=== PATIENT | female | born 1965 | race Two or more races ===

== ENCOUNTER 2017-12-21 13:48 | Inpatient (IN) | payer BC ==
[2017-12-21] MEDS ORDERED: ONDANSETRON HCL IV 4 MG/2 ML VIAL IVP ONE ×2 (14:23→17:21)
[2017-12-21] MEDS ORDERED: ACETAMINOPHEN 1,000 MG/100 ML BTL IVPB ONE (14:23)
[2017-12-21] MEDS ORDERED: 0.9 % SODIUM CHLORIDE 1,000 ML BAG IV ONE (14:23)
--- NOTE | 2017-12-21 14:24 | Emergency Department Record ---
History of Present Illness - General Chief complaint: Vomiting Stated complaint: VOMITING,HEADACHE,ABDOMINAL PAIN,BACK PAIN Time Seen by Provider: 12/21/17 14:16 Source: Patient Mode of Arrival: Ambulatory Limitations: No limitations - History of Present Illness Initial comments: 52 yo female presents since Thursday not feeling well. She states she ate a wrap sandwich and soon after developed nausea and vomiting on Thursday. Since then she has continued to be nauseated with persistent vomiting. She has gradually developed headaches as well. The headache has now become constant since Thursday. Her TMax was about 101. No rash. She has had some abdominal cramps but no significant or persistent abdominal pain. No diarrhea. The neck is a little painful but no limitation with movement. No light sensitivity. No cough. No dysuria. No sore throat. Her PCP is Dr Fernander. ROCHA complaint: Abdominal pain, Nausea, Vomiting, Other (Headache) Onset/Timin -: Days(s) (4 days. Onset Thursday.) Description of Vomiting: Watery Description of Diarrhea: Other (None) Associated Abdominal Pain: Yes Location: LLQ, RLQ Severity: Severe Severity scale (1-10): 10 Quality: Cramping Consistency: Intermittent Improves with: None Worsens with: None Associated Symptoms: Fever/chills, Headaches, Nausea/vomiting, Other - Related Data Allergies Allergy/AdvReac Type Severity Reaction Status Date / Time bee venom protein (honey bee) Allergy Severe ANAPHYLAXIS Verified 12/21/17 14:05 penicillin V Allergy Intermediate RASH Verified 12/21/17 14:05 Quell AdvReac Severe Makes skin Uncoded 11/03/17 14:02 fall off Travel Screening - Travel/Exposure Within Last 30 Days Have you traveled within the last 30 days?: No Review of Systems Constitutional: Reports: Chills, Fever, Malaise Eyes: Denies: Eye discharge, Eye pain, Photophobia, Vision change ENT: Denies: Congestion, Dental pain, Ear pain, Epistaxis, Throat pain Respiratory: Denies: Cough, Dyspnea, Hemoptysis, Stridor, Wheezes Cardiovascular: Denies: Chest pain, Palpitations, Syncope Endocrine: Reports: Fatigue Gastrointestinal: Reports: Nausea, Vomiting. Denies: Abdominal pain ( occasional cramps), Constipation, Diarrhea, Hematemesis, Hematochezia, Melena Genitourinary: Denies: Dysuria, Frequency, Urgency Musculoskeletal: Reports: Neck pain. Denies: Arthralgia, Back pain, Joint swelling, Myalgia Skin: Denies: Bruising, Change in color, Rash Neurological: Reports: Headache. Denies: Confusion, Tremors, Vertigo, Weakness Psychiatric: Denies: Anxiety Hematological/Lymphatic: Denies: Blood Clots, Easy bleeding, Easy bruising, Swollen glands Past Medical History - SOCIAL HISTORY Smoking Status: Current every day smoker Alcohol Use: None Drug Use: None - RESPIRATORY Hx Respiratory Disorders: No - CARDIOVASCULAR Hx Cardio Disorders: Yes Hx Hypertension: Yes Comment:: high cholesterol - NEURO Hx Neuro Disorders: No - GI Hx GI Disorders: No - Hx Genitourinary Disorders: No - ENDOCRINE Hx Endocrine Disorders: No - MUSCULOSKELETAL Hx Musculoskeletal Disorders: No - PSYCH Hx Psych Problems: No - HEMATOLOGY/ONCOLOGY Hx Hematology/Oncology Disorders: No Family Medical History Any Significant Family History?: No Physical Exam - General General Appearance: Alert, Oriented x3, Cooperative, No acute distress, Other ( No acute distress. Appears non toxic in appearance) Limitations: No limitations - Head Head exam: Atraumatic, Normocephalic, Normal inspection - Eye Eye exam: Normal appearance, PERRL, EOMI. negative: Conjunctival injection, Scleral icterus - ENT ENT exam: Normal exam, Mucous membranes moist, Normal orophraynx, TM's normal bilaterally Ear exam: Normal external inspection Nasal Exam: Normal inspection Mouth exam: Normal external inspection Teeth exam: Normal inspection Throat exam: Normal inspection. negative: Tonsillar erythema, Tonsillar exudate - Neck Neck exam: Normal inspection, Full ROM. negative: Lymphadenopathy, Meningismus , Tenderness - Respiratory Respiratory exam: Normal lung sounds bilaterally. negative: Respiratory distress - Cardiovascular Cardiovascular Exam: Regular rate, Normal rhythm, Normal heart sounds - GI/Abdominal GI/Abdominal exam: Soft, Other (Abdomen is very soft. No tenderness on palpation). negative: Distended, Guarding, Rebound, Rigid, Tenderness - Rectal Rectal exam: Deferred - exam: Deferred - Extremities Extremities exam: Normal inspection. negative: Pedal edema, Tenderness - Back Back exam: Denies: CVA tenderness (R), CVA tenderness (L), Muscle spasm, Paraspinal tenderness, Vertebral tenderness - Neurological Neurological exam: Alert, Normal gait, Oriented X3. negative: Abnormal gait, Altered - Psychiatric Psychiatric exam: Normal affect, Normal mood. negative: Agitated, Anxious - Skin Skin exam: Dry, Intact, Normal color, Warm Course Vital Signs 12/21/17 14:02 Temperature 100.2 F H Pulse Rate 112 H Respiratory 20 Rate Blood Pressure 172/105 Pulse Ox 96 - Reevaluation(s) Reevaluation #1: 12/21/17 14:58 The CBC was reviewed The WBC is elevated at [address] with LP given the headache with elevated WBC count, persistent severe headache with some neck ache We discussed the risks and benefits of LP Consent ordered. 12/21/17 15:51 CMP reviewed. No acute changes The HCT was negative The patient reports she is feeling much better at this time. Procedure: Lumbar Puncture L4-5 Left Lateral Decubitus Betadine Prep Lidocaine with Epi 4ml local 22 gauge spinal needle Single attempt Clear fluid visibly 4 cc obtained Tolerated this very well 12/21/17 17:00 Glucose and protein on the CSF are normal 12/21/17 17:14 The CSF was reported as clear, 0 RBC's and 4 WBC's. 12/21/17 17:21 On recheck the headache is greatly improved and she has no abdominal pain. The nausea is returning. She will be given Zofran and PO challenge. The abdomen is very soft and not tender on examination at this time. 12/21/17 17:29 12/21/17 18:20 The patient has not vomited but the nausea and headache are returning. I recommend admission for supportive care and recheck labs. 12/21/17 18:34 I discussed the admission with Marialuisa Durant REPAIR MANAGER. The patient continues to maintain no abdominal pain, the symptoms are persistent nausea and headache. LP does not indicate any signs of bleeding or infection. The UA has not been obtained from the patient at the time of admission and can be obtained on the medical floor when available from the patient. Recheck CBC in the AM. No abdominal pain or tenderness during ED time so CT not indicated at this time. 12/22/17 07:48 Medical Decision Making - Lab Data Result diagrams: 12/22/17 06:09 12/21/17 14:27 Disposition Disposition: Admit Clinical Impression: Vomiting Qualifiers: Vomiting type: unspecified Vomiting Intractability: non-intractable Nausea presence: with nausea Qualified Code(s): R11.2 - Nausea with vomiting, unspecified Headache Qualifiers: Headache type: unspecified Headache chronicity pattern: unspecified pattern Intractability: not intractable Qualified Code(s): R51 - Headache Disposition: Still a Patient at [facility] Decision to Admit: Admit from ER Decision to Admit Date: 12/21/17 Decision to Admit Time: 18:00 Condition: (2) Stable Time of Disposition: 18:00 Quality - Quality Measures Quality Measures: N/A - Blood Pressure Screening Does Patient Have Any of the Following: Active Dx of HTN Blood Pressure Classification: Hypertensive Reading Systolic Measurement: 172 Diastolic Measurement: 105 Screening for High Blood Pressure: Patient Exclusion, Hx of HTN [G9744]
[2017-12-21 14:31] LABS: HEMATOCRIT 49.3 % (35.0-47.0); HEMOGLOBIN 16.8 gm/dl (11.6-16.0); MEAN CELL VOLUME 81.8 fl (81-97); MEAN CORPUSCULAR HGB CONC 34.1 g/dl (32-36); MEAN PLATELET VOLUME 10.5 fl (7.4-10.4); PLATELET COUNT 387 K/uL (130-400); RED BLOOD COUNT 6.03 M/uL (3.80-5.40); RED CELL DISTRIBUTION WIDTH 14.9 % (11.5-14.5)
[2017-12-21 14:35] LABS: MEAN CORPUSCULAR HEMOGLOBIN 27.8 pg (27-33)
[2017-12-21 14:36] LABS: WHITE BLOOD COUNT W/O DIFF 26.9 K/uL (4.2-12.2)
[2017-12-21 14:45] LABS: BLOOD UREA NITROGEN 17 mg/dL (6-20); CREATININE 0.8 mg/dL (0.5-0.9); EST GLOMERULAR FILTRATION RATE > 60 mL/min; TOTAL PROTEIN 7.8 g/dL (6.6-8.7)
[2017-12-21 14:47] LABS: GLUCOSE,RANDOM 110 mg/dL (74-109)
[2017-12-21 14:48] LABS: INR 1.1; PARTIAL THROMBOPLASTIN TIME 25.3 SECONDS (24.5-39.1); PROTHROMBIN TIME (PATIENT) 11.4 SECONDS (9.5-12.1)
[2017-12-21 14:50] LABS: ALB/GLOB RATIO 1.5 (1.1-1.8); ALBUMIN 4.7 g/dL (4.0-5.0); ALKALINE PHOSPHATASE 99 U/L (35-104); ALT/SGPT 27 U/L (<33); AST/SGOT 17 U/L (10.0-35.0); LIPASE 25 U/L (13-60)
[2017-12-21] MEDS ORDERED: FENTANYL PF 100MCG/2ML VIAL IVP ONE (14:57)
[2017-12-21 16:33] LABS: TOTAL PROTEIN,CSF 20.5 mg/dL (15.0-45.0)
[2017-12-21 17:10] LABS: CSF APPEARANCE CLEAR; CSF COLOR COLORLESS; CSF RBC 0 /mm3; CSF WBC 4 /uL
[2017-12-21 17:28] LABS: SPECIMEN SOURCE CSF
[2017-12-21 17:29] LABS: GRAM STAIN NO ORGANISMS SEEN
[2017-12-21] MEDS ORDERED: FENTANYL PF 100MCG/2ML VIAL IVP PRN (19:38)
[2017-12-21] MEDS: ACETAMINOPHEN 500 MG TABLET PO PRN (19:58)
[2017-12-21] MEDS: 0.9 % SODIUM CHLORIDE 1000ML 1,000 ML IV PRN (21:10)
[2017-12-21] MEDS: SIMVASTATIN 10MG TABLET PO SCH (21:44)
[2017-12-21 22:26] LABS: URINE APPEARANCE CLEAR; URINE BILIRUBIN NEGATIVE (NEGATIVE); URINE BLOOD SMALL (NEGATIVE); URINE COLOR YELLOW; URINE GLUCOSE (UA) NEGATIVE (NEGATIVE); URINE KETONE NEGATIVE (NEGATIVE); URINE LEUKOCYTE ESTERASE TRACE (NEGATIVE); URINE NITRITE NEGATIVE (NEGATIVE); URINE UROBILINOGEN 0.2 E.U./dL (0.20 - 1.00)
[2017-12-21 22:39] LABS: URINE BACTERIA 3+
[2017-12-22] MEDS: ACETAMINOPHEN 500 MG TABLET PO PRN ×2 (02:38→07:47)
[2017-12-22] MEDS: 0.9 % SODIUM CHLORIDE 1000ML 1,000 ML IV PRN ×2 (05:08→14:16)
[2017-12-22 06:33] LABS: HEMATOCRIT 42.9 % (35.0-47.0); HEMOGLOBIN 14.6 gm/dl (11.6-16.0); MEAN CELL VOLUME 82.8 fl (81-97); MEAN CORPUSCULAR HEMOGLOBIN 28.2 pg (27-33); MEAN PLATELET VOLUME 10.3 fl (7.4-10.4); PLATELET COUNT 296 K/uL (130-400); RED BLOOD COUNT 5.18 M/uL (3.80-5.40); RED CELL DISTRIBUTION WIDTH 14.4 % (11.5-14.5)
[2017-12-22 06:42] LABS: WHITE BLOOD COUNT W/O DIFF 22.1 K/uL (4.2-12.2)
[2017-12-22 07:00] LABS: ANISOCYTOSIS 1+; PLATELET ESTIMATE NORMAL (NORMAL)
--- NOTE | 2017-12-22 07:25 | CT SCAN REPORT ---
EXAM: EMERGENCY HEAD CT WITHOUT CONTRAST HISTORY: HEADACHE FOR FOUR DAYS, FEVER. TECHNIQUE: Axial CT scan of the head was performed without IV contrast. Comparison: None. FINDINGS: No definite acute intracranial hemorrhage identified. No focal mass effect or midline shift apparent. No definite acute infarct or intracranial mass lesion is seen. There is probably a small cyst or polyp posteriorly in the left sphenoid sinus. IMPRESSION: EMERGENCY NONCONTRAST HEAD CT APPEARS ESSENTIALLY NEGATIVE WITH NO DEFINITE ACUTE INTRACRANIAL HEMORRHAGE OR FOCAL MASS EFFECT IDENTIFIED. JOB NUMBER: [id number] [facility]
[2017-12-22] MEDS: LOSARTAN POTASSIUM 25 MG TABLET PO SCH ×3 (07:46→11:17)
[2017-12-22] MEDS: CEFTRIAXONE 1GM/50ML BAG 1 GM/50 ML BAG IVPB SCH ×2 (08:41→21:00)
[2017-12-22] MEDS: ENOXAPARIN 40 MG/0.4 ML SYR SQ SCH (08:59)
[2017-12-22] MEDS: ONDANSETRON HCL IV 4 MG/2 ML VIAL IVP PRN ×2 (10:52→18:02)
[2017-12-22] MEDS ORDERED: ACETAMINOPHEN 500 MG TABLET PO PRN (12:20)
[2017-12-22] MEDS: ACETAMINOPHEN 325 MG TAB PO PRN ×2 (12:32→18:04)
[2017-12-22] MEDS ORDERED: IBUPROFEN 600 MG TABLET PO PRN (12:43)
[2017-12-22] MEDS: SIMVASTATIN 10MG TABLET PO SCH (21:40)
[2017-12-22] MEDS ORDERED: LEVOFLOXACIN/D5W 750 MG/150 ML BAG IVPB SCH (22:00)
[2017-12-23] MEDS: ONDANSETRON HCL IV 4 MG/2 ML VIAL IVP PRN (06:22)
[2017-12-23] MEDS: 0.9 % SODIUM CHLORIDE 1000ML 1,000 ML IV PRN ×2 (08:34→16:42)
[2017-12-23] MEDS: CEFTRIAXONE 1GM/50ML BAG 1 GM/50 ML BAG IVPB SCH ×3 (09:47→21:45)
[2017-12-23] MEDS: ENOXAPARIN 40 MG/0.4 ML SYR SQ SCH (09:48)
[2017-12-23] MEDS: LOSARTAN POTASSIUM 25 MG TABLET PO SCH (09:48)
--- NOTE | 2017-12-23 12:40 | History and Physical Report ---
CHIEF COMPLAINT: Chills, fever, vomiting. This started about 3-4 days prior to admission. HISTORY OF PRESENT ILLNESS: This 52-year-old female states she was not feeling well for 4 days. She ate a sandwich at the [employer] and thought it might have been that. She started vomiting. Her temperature was 101. No rashes. She had some abdominal cramping but no persistent abdominal pain. No diarrhea. Her neck was painful. She had a headache. No light sensitivity. No cough. No dysuria. No sore throat. Her primary is Dr. Ridley. She was seen in the emergency department by Dr. Castillo who did a spinal tap which was negative for infection. Cultures are being done. Head CT was negative. Her laboratory showed a white count of 26,900, hemoglobin 16.8, BUN 17, creatinine 0.8. Urine showing 10-15 WBCs, bacteria 3+. Her spinal fluid was clear, colorless, WBCs 4, glucose 67, total protein 20, no organisms seen. PAST MEDICAL HISTORY: Hypertension, hypercholesterolemia. PAST SURGICAL HISTORY: Tonsillectomy and ear surgery. MEDICATIONS: 1. Pravastatin 10 mg at h.s. 2. Losartan 25 mg a day. 3. Claritin-D 1 daily. 4. Ventolin 2 puffs q.4 h. p.r.n. ALLERGIES: BEE VENOM, PEN VK, KWELL. FAMILY/PSYCHOSOCIAL HISTORY: She smokes cigarettes, about a pack a day. No alcohol or drug use. No significant family history. REVIEW OF SYSTEMS: HEENT: She has had fever, chills, nausea, vomiting. Cardiovascular: No chest pain, palpitations. Respiratory: No cough, cold, or congestion. Gastrointestinal: See Chief Complaint. Vomiting but no diarrhea. Some abdominal discomfort. Genitourinary: No dysuria or hematuria but her urine was positive for a UTI. Musculoskeletal: She has body aches. Neurological: She had a headache and neck pain. No signs or CVA. CURBSTONE SETTER: No vaginal bleeding or abnormal lumps in her breasts. Endocrine: No diabetes or thyroid disease. Integument: No rash, ulcers, change in moles, or yellow skin. PHYSICAL EXAMINATION: VITALS: Height 5 feet 7 inches, weight 240 pounds. Temperature 100.2, pulse 112, blood pressure 132/105, respiratory rate 20. HEENT: Pupils are equal, round, and reactive to light and accommodation. Extraocular muscles are intact. Throat is clear. Nose is clear. Tympanic membranes are marin. NECK: Supple. No jugular venous distention. No hepatojugular reflux. No carotid bruits. CARDIOVASCULAR: Regular rate and rhythm without murmurs, clicks, rubs, or gallops. RESPIRATORY: Clear to auscultation. Breath sounds equal bilaterally. ABDOMEN: Soft, nontender. No hepatosplenomegaly, no tenderness, no guarding, no rigidity. EXTREMITIES: No pitting edema. No cyanosis, no clubbing. Full range of motion. Peripheral pulses are good. BREASTS: Exam deferred. GYNECOLOGICAL: Exam deferred. RECTAL: Exam deferred. NEUROLOGIC: Cranial nerves II-XII intact. No gross defects. Sensation normal, strength normal. Deep tendon reflexes equal bilaterally with Babinski negative. MENTAL STATUS: Alert and oriented x3. IMPRESSION: 1. Fever. 2. Vomiting. 3. Urinary tract infection. 4. History of hypertension. PLAN: IV Rocephin 1 g q.12 h. Lovenox 40 mg subcu. IV fluids 125 mL/hour. INPATIENT CERTIFICATION: Based on my medical assessment, after consideration of patient's risk factors, age, comorbidities, and patient's presenting symptoms and acuity, I expect that this patient will remain in the hospital greater than or equal to 2 midnights and that the services needed warrant inpatient care because of fever, dehydration, vomiting. Estimated length of stay is 3 days. The patient may reasonably be expected to be discharged or transferred to a hospital within 96 hours after admission to [facility]. I certify that my determination is in accordance with my understanding of Medicare requirements for reasonable and necessary inpatient services. KASIA
[2017-12-23] MEDS: ACETAMINOPHEN 325 MG TAB PO PRN (13:21)
[2017-12-23] MEDS: CLONIDINE HCL 0.1 MG TABLET PO SCH ×2 (14:07→21:45)
[2017-12-23] MEDS ORDERED: WARFARIN 2.5 MG TAB PO SCH (16:00)
[2017-12-23] MEDS: SIMVASTATIN 10MG TABLET PO SCH (21:43)
[2017-12-24] MEDS: CLONIDINE HCL 0.1 MG TABLET PO SCH (06:16)
[2017-12-24 06:47] LABS: BASO % 0.3 % (0-6); EOS % 2.5 % (0-6); GRAN % 64.1 % (47-80); HEMATOCRIT 39.9 % (35.0-47.0); HEMOGLOBIN 13.1 gm/dl (11.6-16.0); LYMPH % 19.1 % (16-45); MEAN CELL VOLUME 83.6 fl (81-97); MEAN CORPUSCULAR HEMOGLOBIN 27.5 pg (27-33); MEAN CORPUSCULAR HGB CONC 32.8 g/dl (32-36); MEAN PLATELET VOLUME 10.6 fl (7.4-10.4); PLATELET COUNT 269 K/uL (130-400); RED BLOOD COUNT 4.77 M/uL (3.80-5.40); RED CELL DISTRIBUTION WIDTH 14.6 % (11.5-14.5); WHITE BLOOD COUNT W/O DIFF 9.9 K/uL (4.2-12.2)
[2017-12-24] MEDS: CEFTRIAXONE 1GM/50ML BAG 1 GM/50 ML BAG IVPB SCH (09:17)
[2017-12-24] MEDS: ENOXAPARIN 40 MG/0.4 ML SYR SQ SCH (09:18)
[2017-12-24] MEDS: LOSARTAN POTASSIUM 25 MG TABLET PO SCH (09:18)
--- NOTE | 2017-12-24 13:01 | Discharge Note ---
VTE H&P Assessment - Risk for VTE Risk for VTE: Yes Risk Level: Moderate Risk Assessment Date: 12/22/17 Risk Assessment Time: 16:00 VTE Orders Placed or Will Be Placed: Yes Discharge Medications - Discharge Medications Prescriptions: Cephalexin [Keflex] 500 mg PO QID #40 cap Clonidine HCl [Catapres] 0.1 mg PO Q8H #90 tablet Home Medications: Ambulatory Orders Albuterol Sulfate [Ventolin Hfa] 1 - 2 puff IH Q4-6HR #1 inhaler 12/16/16 [Last Taken Unknown] Acetaminophen [Tylenol 325Mg] 650 mg PO Q4H PRN tablet 12/24/17 [Last Taken Unknown] Cephalexin [Keflex] 500 mg PO QID #40 cap 12/24/17 [Last Taken Unknown] Clonidine HCl [Catapres] 0.1 mg PO Q8H #90 tablet 12/24/17 [Last Taken Unknown] Discharge Note - Date Date of Discharge Note: 12/24/17 Condition: (2) Stable Additional Instructions: Follow up with STEVEN Wetzel at [facility] on 01/04 at 5:40 as scheduled it any problems follow up with [facility] clinic sooner if any problems stay off cigs Prescriptions: Cephalexin [Keflex] 500 mg PO QID #40 cap Clonidine HCl [Catapres] 0.1 mg PO Q8H #90 tablet Referrals: JENAE GALVAN [Primary Care Provider] - Forms: Patient Portal Access Activity at Discharge: Increase Activity as Tolerated Diet at Discharge: Regular Diet
--- NOTE | 2017-12-24 13:13 | Discharge Note ---
VTE H&P Assessment - Risk for VTE Risk for VTE: Yes Risk Level: Moderate Risk Assessment Date: 12/22/17 Risk Assessment Time: 16:00 VTE Orders Placed or Will Be Placed: Yes Discharge Medications - Discharge Medications Prescriptions: Ciprofloxacin HCl [Cipro] 500 mg PO Q12HR #20 tablet Clonidine HCl [Catapres] 0.1 mg PO Q8H #90 tablet Home Medications: Ambulatory Orders Albuterol Sulfate [Ventolin Hfa] 1 - 2 puff IH Q4-6HR #1 inhaler 12/16/16 [Last Taken Unknown] Acetaminophen [Tylenol 325Mg] 650 mg PO Q4H PRN tablet 12/24/17 [Last Taken Unknown] Ciprofloxacin HCl [Cipro] 500 mg PO Q12HR #20 tablet 12/24/17 [Last Taken Unknown] Clonidine HCl [Catapres] 0.1 mg PO Q8H #90 tablet 12/24/17 [Last Taken Unknown] Discharge Note - Date Date of Discharge Note: 12/24/17 Condition: (2) Stable Additional Instructions: Follow up with STEVEN Wetzel at [facility] on 01/04 at 5:40 as scheduled if any problems follow up with [facility] clinic sooner stay off cigs Prescriptions: Cephalexin [Keflex] 500 mg PO QID #40 cap Clonidine HCl [Catapres] 0.1 mg PO Q8H #90 tablet Referrals: JENAE GALVAN [Primary Care Provider] - Forms: Patient Portal Access Activity at Discharge: Increase Activity as Tolerated
--- NOTE | 2017-12-25 09:40 | Discharge Summary ---
DATE: 12/24/2017 1:16 p.m. DISCHARGE DIAGNOSES: 1. Urinary tract infection. 2. Sepsis. 3. Hypertension. ATTENDING PHYSICIAN: Marc Yarbrough DO REASON FOR HOSPITALIZATION: This 52-year-old female presented to the emergency department not feeling well for 4 days. She thought she ate a sandwich that was bad at [employer]. She was vomiting and had a temperature of 101. She was seen in the emergency department by Dr. Castillo and a spinal tap was done which was negative for infection. Cultures were obtained. Head CT was negative. Urine showing infection. She was admitted to the hospital for IV fluids, IV antibiotics with Rocephin 1 g q.12 h., and further evaluation. SIGNIFICANT FINDINGS: Urine culture came back with Klebsiella pneumoniae sensitive to Rocephin but not to Keflex, so we switched her over outpatient to Cipro which it is sensitive to, 500 mg twice a day for [address] head [address] was negative. The spinal fluid was negative. Her white count was elevated at 26,000 and went down to about 9900 with a hemoglobin of 13.1. BUN 17, creatinine 0.8, potassium 3.9. THERAPY PROVIDED: The patient was given IV Rocephin 1 g q.12 h. and switched over on discharge to Cipro 500 mg twice a day. The patient is feeling much better. CONDITION ON DISCHARGE: Much improved. DISCHARGE INSTRUCTIONS: Follow up with the nurse practitioner Thania with Dr. Ridley on 01/04/2018 at 5:40 p.m. Cipro 500 mg twice a day. She was started on clonidine 0.1 mg q.8 h. because her blood pressure was running high. This may need to be stopped after she is totally better and her blood pressure comes down. She also states she is stopping cigarettes. She stopped about 4 days ago when she came in the hospital. Continue her home medications of Zocor 5 mg daily, Cozaar 25 mg daily, and a new blood pressure medication of clonidine 0.1 mg every 8 hours. [facility]
== END 2017-12-24 13:27 | disposition home or self-care (01) | DRG 392 ==
LOC: ER 13:48 → MEDSURG 19:32
PROVIDERS: ADMIT Internal Medicine; ATTEND Emergency Medicine
DX: R11.2 Nausea with vomiting, unspecified (principal); R51 Headache; R50.9 Fever, unspecified; R10.84 Generalized abdominal pain; M54.9 Dorsalgia, unspecified; I10 Essential (primary) hypertension; E78.00 Pure hypercholesterolemia, unspecified; F17.210 Nicotine dependence, cigarettes, uncomplicated
CPT/HCPCS: 62270; 70450; 80053; 81001; 82310; 82945; 83690; 84157; 85025; 85027; 85610; 85730; 87205; 89051; 96361; 96365; 96375; 96376; 99223; 99232; 99238; 99285; J0696; J1650; J2405; J7030